=== PATIENT | female | born 1975 | race Caucasian/White ===

== ENCOUNTER 2016-10-29 14:58 | Emergency (ER) | payer MEDICAID ==
[2016-10-29 19:29] VITALS: BP 124/67
== END 2016-10-29 19:29 | disposition home or self-care (01) ==
LOC: ED 14:58
DX: S89.91XA Unspecified injury of right lower leg, initial encounter (principal); S16.1XXA Strain of muscle, fascia and tendon at neck level, initial encounter; S89.92XA Unspecified injury of left lower leg, initial encounter; S63.592A Other specified sprain of left wrist, initial encounter; W18.39XA Other fall on same level, initial encounter; Y93.89 Activity, other specified; Y92.511 Restaurant or cafe as the place of occurrence of the external cause; Y99.8 Other external cause status
CPT/HCPCS: J1885

== ENCOUNTER 2018-08-24 17:59 | Emergency (ER) | payer MEDICAID ==
[~2018-08-24] VITALS: Ht 162.6 cm; Wt 78.5 kg
[2018-08-24 18:10] VITALS: Ht 162.6 cm; Wt 78.5 kg
[2018-08-24 20:29] VITALS: BP 141/85
== END 2018-08-24 20:29 | disposition home or self-care (01) ==
LOC: ED 17:59
DX: S92.152A Displaced avulsion fracture (chip fracture) of left talus, initial encounter for closed fracture (principal); E11.9 Type 2 diabetes mellitus without complications; W01.0XXA Fall on same level from slipping, tripping and stumbling without subsequent striking against object, initial encounter; Y93.89 Activity, other specified; Y92.89 Other specified places as the place of occurrence of the external cause; Y99.8 Other external cause status
CPT/HCPCS: J1885